=== PATIENT | male | born 1965 | race Caucasian/White ===

== ENCOUNTER → 2017-04-12 | Day surgery (SDC) | payer OTHER ==
[~2017-04-12] VITALS: Ht 167.6 cm; Wt 89.6 kg
[~2017-04-12] MED LIST: ACETAMINOPHEN 1000 MG/100 ML 100 ML IV SCH; ADDE10 PO; BUPIVACAINE LIPOSOME PF 1.3% 20 ML VIAL ONE; BUPIVACAINE/EPINEPHRINE 0.25% 50 ML VIAL ONE; CHLORHEXIDINE GLUCONATE 2 % 1 PACK (2 CLOTHS) TOPICAL PRN; CLON1 PO; DEXAMETHASONE SOD PHOS 4 MG/ML VIAL IV ONE; DO NOT ADM ANY ANTICOAGULANT DRUGS PRN; FISH100020 PO; GLYCOPYRROLATE 1 MG/5 ML SYRINGE IV PUSH ONE; INSULIN HUMAN REGULAR 1,000 UNITS/10 ML VIAL SQ PRN; LACTATED RINGER'S 1000 ML INJ 1,000 ML IV ONE; LACTATED RINGER'S 1000 ML IV PRN; LIDOCAINE HCL 1% PF 5 ML AMPULE OTHER ONE; METOPROLOL TARTRATE 25 MG TAB PO PRN; MIDAZOLAM HCL 2 MG/2 ML VIAL IV ONE; MORPHINE SULFATE 4 MG/ML INJ IV PUSH PRN; NEOSTIGMINE 3 MG/3 ML SYR IV ONE; OMEP20TA PO; ONDANSETRON HCL 4 MG/2 ML VIAL IV PUSH ONE; ONDANSETRON HCL 4 MG/2 ML VIAL IV PUSH PRN; PHENYLEPH/NS 1000 MCG/10 ML SYR IV ONE; POVIDONE IODINE 5% (ANTISEPSIS KIT) 4 APPLICATIONS EACH NARE PRN; PROPOFOL 200 MG/20 ML AMP IV ONE; ROCURONIUM INJ 50 MG/5 ML SYRINGE IV PUSH ONE; SODIUM CHLORID 0.9% 500 ML IV PRN; SODIUM CHLORIDE 0.9% 20 ML VIAL IV ONE; VITA1000 PO; VITA200C3 PO; ceFAZolin 2 GM PREMIX 50 ML ONE; ePHEDrine/NS 25 MG/5 ML SYR IV ONE; oxyCODONE/ACETAMINOPHEN 5 MG/325 MG TAB PO PRN
--- NOTE | 2017-04-12 09:30 | PD.OP ---
cc: Clint Silva MD Operative Report Date of Surgery: Apr 12, 2017 Preoperative Diagnosis: (1) Incarcerated umbilical hernia Postoperative Diagnosis: (1) Incarcerated umbilical hernia Procedure: Laparoscopic umbilical hernia reduction and repair with mesh Anesthesia: MADHURI Surgeon: Clint Silva Sewing Machine Operator Floorperson(s): Deng CHILDRESS Operation and Findings: EBL: 5 cc Operative findings: The patient had an umbilical fascial defect approximately 1 cm with a large amount of incarcerated preperitoneal fat. The fat was reduced. A 4.5" x 4.5" Ventralight ST mesh was placed using echo deployment system. Procedure in detail: The patient was taken to the operating room and placed in supine position. General endotracheal anesthesia was induced and the abdomen was prepped and draped in usual sterile fashion. Ioban was placed on the abdomen as well. Surgical timeout was performed to verify correct patient and procedure site and appropriate preoperative antibiotics were administered. Local anesthetic injected in skin and subcutaneous tissue and the left upper abdomen and a 12 mm incision created. A 5 mm port was placed under direct laparoscopic visualization. The abdomen was insufflated to 15 mmHg with CO2 gas which the patient tolerated well. The patient was noted have omental adhesions to the umbilicus as well as to the falciform ligament. A 5 mm trocar was placed in the left lateral abdomen and another in the right lateral abdomen. The left upper quadrant port was changed to a 12 mm port. The Harmonic scalpel was used to lyse the omental adhesions. The patient had a lot of fatty tissue around the umbilicus which was carefully taken down and the posterior rectus fascia was preserved. The median umbilical ligament fatty tissue was taken down for about 6 or 8 cm inferior to the umbilicus. Superiorly the fat was cleared up to the level of the falciform. The umbilical hernia had a large amount of preperitoneal fat incarcerated and this was carefully reduced using the Harmonic scalpel and outside pressure. The umbilical defect was approximately 1 cm in diameter. The 4.5" x 4.5" ventral light ST mesh was chosen. The echo deployment system was used. The mesh was placed into the abdominal cavity. A small skin incision was made just superior to the umbilicus and the suture passer placed into the abdomen. The echo catheter was grasped and brought outside the abdomen. It was then inflated. The mesh was carefully centered over the umbilical defect and then tacked circumferentially using the Capsure tacker. An inner row of tacks was also placed. The mesh had wide coverage of the defect. The fatty tissue of the median umbilical ligament was excised and removed from the abdominal cavity using an Endo Catch bag. This point the trochars were removed and the abdomen allowed to desufflate. The left upper quadrant fascia was closed with 2 layers with 0 Vicryl suture. Skin closed with 4-0 subcuticular Monocryl and Dermabond. A pressure dressing was placed at the umbilicus and an abdominal binder placed. The patient tolerated the procedure well was extubated and taken back in stable condition. Clint Silva MD Apr 12, 2017 09:30
[2017-04-12 11:27] VITALS: BP 101/70; PULSE 72; RESP 20; TEMP 97.4; O2SAT 97
== END | disposition home or self-care (01) ==
LOC: HSDC 05:46
PROVIDERS: ATTEND Surgery
DX: K42.0 Umbilical hernia with obstruction, without gangrene (principal); H10.10 Acute atopic conjunctivitis, unspecified eye; J45.901 Unspecified asthma with (acute) exacerbation; K21.9 Gastro-esophageal reflux disease without esophagitis; E55.9 Vitamin D deficiency, unspecified; J06.9 Acute upper respiratory infection, unspecified; G47.33 Obstructive sleep apnea (adult) (pediatric); H91.91 Unspecified hearing loss, right ear; J31.0 Chronic rhinitis
CPT/HCPCS: 00750; 49653; C1781; C9290; J0131; J0690; J7120; 99211; G0463; J1100; J2250; J2370; J2405; J2710; J3010